=== PATIENT | male | born 1995 | race Two or more races ===

== ENCOUNTER → 2018-01-15 | Outpatient (CLI) | payer OTHER ==
[~2018-01-15] VITALS: Ht 188 cm; Wt 129.2 kg
[~2018-01-15] MED LIST: PEG 3350 ELEC4000 ML PO; VENTOLIN HFA18 GM IH; ZITHROMAX Z-PA250 MG PO
== END | disposition home or self-care (01) ==
LOC: AMB 07:27
DX: K63.5 Polyp of colon (principal); K62.89 Other specified diseases of anus and rectum; E66.9 Obesity, unspecified; Z68.34 Body mass index [BMI] 34.0-34.9, adult; F90.9 Attention-deficit hyperactivity disorder, unspecified type; Z82.49 Family history of ischemic heart disease and other diseases of the circulatory system; Z83.3 Family history of diabetes mellitus
CPT/HCPCS: 88305; J2405; J7643